=== PATIENT | male | born 1995 | race Two or more races ===

== ENCOUNTER 2018-08-10 00:42 | Emergency (ER) | payer OTHER ==
[~2018-08-10] VITALS: Ht 188 cm; Wt 113.4 kg
[2018-08-10 01:31] LABS: Basophils # (auto) 0.1 uL; Red Cell Distribution Width 13.6 % (11.8-14.3)
[2018-08-10 01:33] LABS: Basophils % (auto) 0.6 % (0.0-2.0); Eosinophils # (auto) 0.4 uL; Eosinophils % (auto) 2.9 % (0.0-7.0); Hematocrit 54.6 % (41.0-53.0); Hemoglobin 18.8 g/dL (13.5-17.5); Lymphocytes % (auto) 20.2 % (10.0-50.0); Mean Corpuscular Hemoglobin 33.1 pg (28.0-32.0); Mean Corpuscular Hgb Conc. 34.3 g/dL (32.0-36.0); Mean Corpuscular Volume 96.3 fL (80.0-100.0); Monocytes # (auto) 0.5 uL; Monocytes % (auto) 3.8 % (0.0-12.0); Neutrophils # (auto) 10.6 uL; Neutrophils % (auto) 72.5 % (37.0-80.0); Platelet Count (auto) 246 10^3/uL (140-450); Red Blood Cells 5.67 10^6/uL (4.5-5.90); White Blood Cell 14.6 10^3/uL (4.4-10.8)
[2018-08-10 01:47] LABS: BUN/Creatinine Ratio 12.4; Calcium 8.5 mg/dL (8.5-10.1); Potassium 3.8 mmol/L (3.5-5.1)
[2018-08-10 01:49] LABS: Bilirubin, Total 0.4 mg/dL (0.2-1.0); Total Protein 7.8 g/dL (6.4-8.2)
[2018-08-10] MEDS ORDERED: MORPHINE SULFATE 4 MG/ML SYR/VIAL IV ONE (04:45)
[2018-08-10] MEDS ORDERED: ONDANSETRON HCL 4 MG/2 ML VIAL IV ONE (04:45)
[2018-08-10 05:05] VITALS: BP 108/65
== END 2018-08-10 05:07 | disposition home or self-care (01) ==
LOC: EDBD 00:42 → ER 00:53
DX: S30.1XXA Contusion of abdominal wall, initial encounter (principal); S20.212A Contusion of left front wall of thorax, initial encounter; V43.92XA Unspecified car occupant injured in collision with other type car in traffic accident, initial encounter; Y93.89 Activity, other specified; Y99.8 Other external cause status; Y92.410 Unspecified street and highway as the place of occurrence of the external cause
CPT/HCPCS: 36415; 71250; 74176; 80053; 80320; 83690; 85025; 93005

== ENCOUNTER 2022-07-05 19:53 | Emergency (ER) | payer BC ==
[~2022-07-05] VITALS: Ht 185.4 cm; Wt 104.0 kg
[2022-07-05 20:21] VITALS: BP 131/71
[2022-07-05] MEDS ORDERED: ALBUTEROL SULF 2.5 MG/0.5ML(0.5%) NEB SOLN NEB ONE (21:00)
[2022-07-05] MEDS ORDERED: ALBU108A5 IN (21:05)
== END 2022-07-05 21:22 | disposition home or self-care (01) ==
LOC: ER 19:55
DX: J45.909 Unspecified asthma, uncomplicated (principal)
CPT/HCPCS: 94640